=== PATIENT | male | born 2000 | race African-American/Black ===

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

== ENCOUNTER 2021-02-13 21:30 | Emergency (ER) | payer SELFPAY ==
[~2021-02-13] VITALS: Ht 167.6 cm; Wt 78.2 kg
[~2021-02-13 21:30] MED LIST: AMOXICILLIN 50500 MG PO
[2021-02-13 21:47] VITALS: BP 136/62; PULSE 114; TEMP 103.1
== END 2021-02-13 22:08 | disposition left against medical advice (07) ==
LOC: COL.ER 21:30
DX: R51.9 Headache, unspecified (principal)